=== PATIENT | female | born 1945 | race Hispanic/Latino ===

== ENCOUNTER 2018-12-23 07:15 | Day surgery (SDC) | payer BC, MEDICARE ==
[~2018-12-23 07:15] MED LIST: ALBUTEROL; AMBR10TA3 PO; CHOL200074 PO; FERS325 PO; FURO20TA4 PO; MULT-1258 PO; OLME5TAB PO; OMEP40CA13 PO; SODIUM CHLORIDE 0.9% 1000ML 1,000 ML IV ONE; SPIR25TA6 PO; TADA20TA31 PO
[2018-12-23 08:36] VITALS: BP 113/68
[2018-12-23 11:11] VITALS: BP 92/40
[2018-12-23 11:17] VITALS: BP 102/31
[2018-12-23 11:22] VITALS: BP 101/32
== END 2018-12-23 11:46 ==
LOC: ENDO 07:15 → DAH 07:15 → ENDO 11:46
PROVIDERS: ATTEND Internal Medicine Gastroenterology
DX: D50.9 Iron deficiency anemia, unspecified (principal); D12.2 Benign neoplasm of ascending colon; K29.50 Unspecified chronic gastritis without bleeding; B96.81 Helicobacter pylori [H. pylori] as the cause of diseases classified elsewhere; K64.1 Second degree hemorrhoids; K57.30 Diverticulosis of large intestine without perforation or abscess without bleeding; E78.5 Hyperlipidemia, unspecified; I11.0 Hypertensive heart disease with heart failure; K21.9 Gastro-esophageal reflux disease without esophagitis; I50.9 Heart failure, unspecified; M81.0 Age-related osteoporosis without current pathological fracture; Z79.899 Other long term (current) drug therapy; Z85.3 Personal history of malignant neoplasm of breast; Z85.42 Personal history of malignant neoplasm of other parts of uterus; Z90.710 Acquired absence of both cervix and uterus; Z98.890 Other specified postprocedural states; Z72.89 Other problems related to lifestyle
CPT/HCPCS: 43239; 45385; A4215; A4221; A4222; A4223; A4606; A4663; J7030